=== PATIENT | female | born 1980 | race Caucasian/White ===

== ENCOUNTER 2022-10-25 03:15 | Inpatient (IN) | payer BC ==
[2022-10-25] MEDS ORDERED: Celecoxib 200 MG Cap PO ONE ×2 (05:41→13:37)
[2022-10-25] MEDS ORDERED: Gabapentin 300 MG Cap PO ONE (05:42)
[2022-10-25] MEDS ORDERED: Scopolamine 1.5 MG Transdermal Patch TOP ONE (06:00)
[2022-10-25] MEDS ORDERED: Dextrose 5%-Lactated Ringers 1,000 ML IV SCH ×2 (06:00→10:30)
[2022-10-25 06:08] LABS: HEMOGLOBIN A1C 9.3 % (4.5-6.2)
[2022-10-25 06:26] LABS: MAGNESIUM 1.6 mg/dL (1.8-2.4); PHOSPHORUS 3.4 mg/dL (2.5-4.9)
[2022-10-25] MEDS ORDERED: cefOXitin 2 GM in Sodium Chloride 0.9% 50 ML IV ONE (06:30)
[2022-10-25] MEDS ORDERED: Meropenem 500 MG SDV ONE (06:32)
[2022-10-25] MEDS ORDERED: Bupivacaine 0.5% 50 ML MDV ONE (06:33)
[2022-10-25] MEDS ORDERED: Lidocaine 1% with EPINEPHrine 1:100,000 50 ML MDV ONE (06:33)
[2022-10-25] MEDS ORDERED: cefOXitin 2 GM Vial ONE (06:35)
[2022-10-25] MEDS ORDERED: Propofol 200 MG/20 ML SDV ONE (07:09)
[2022-10-25] MEDS ORDERED: Succinylcholine 200 MG/10 ML MDV ONE (07:09)
[2022-10-25] MEDS ORDERED: Rocuronium 50 MG/5 ML Vial ONE (07:09)
[2022-10-25] MEDS ORDERED: Dexamethasone 4 MG/ML SDV ONE (07:09)
[2022-10-25] MEDS ORDERED: Ondansetron 4 MG/2 ML SDV ONE (07:09)
[2022-10-25] MEDS ORDERED: fentaNYL 250 MCG/5 ML SDV ONE ×2 (07:09→07:43)
[2022-10-25] MEDS ORDERED: Neostigmine Methylsulfate 1 MG/ML 5 ML Syringe ONE (07:09)
[2022-10-25] MEDS ORDERED: Glycopyrrolate 0.2 MG/ML 5 ML MDV ONE (07:09)
[2022-10-25] MEDS ORDERED: Ketamine 19 MG in Sodium Chloride 0.9% 19.81 ML IV SCH (07:30)
[2022-10-25] MEDS ORDERED: Ketamine 500 MG/5 ML MDV IV SCH (07:30)
[2022-10-25] MEDS ORDERED: Labetalol 20 MG/4 ML Syringe ONE (08:00)
[2022-10-25] MEDS ORDERED: Albuterol 90 MCG/6.7 GM Inhaler INH ONE (08:30)
[2022-10-25] MEDS ORDERED: Sugammadex Sodium 200 MG/2 ML VIAL ONE (09:06)
[2022-10-25] MEDS ORDERED: fentaNYL 50 MCG/ML SDV IVPUSH ONE ×2 (09:24→09:48)
[2022-10-25] MEDS ORDERED: hydrOXYzine HCl 50 MG/ML SDV IM ONE (09:36)
[2022-10-25] MEDS: Insulin Lispro 100 Unit/ML 3 ML KwikPen SUBCUT SCH ×3 (09:46→22:53)
[2022-10-25] MEDS ORDERED: 50% Dextrose in Water 50 ML Syringe IVPUSH PRN (10:00)
[2022-10-25] MEDS ORDERED: Glucagon,Human Recombinant 1 MG Vial IM PRN (10:00)
[2022-10-25] MEDS ORDERED: Cyclobenzaprine 10 MG Tab PO PRN (10:27)
[2022-10-25] MEDS: HYDROmorphone 1 MG/ML Syringe IV PRN ×2 (10:36→13:34)
[2022-10-25] MEDS: oxyCODONE 5 MG Tab PO PRN ×2 (10:53→16:37)
[2022-10-25] MEDS ORDERED: Labetalol 20 MG/4 ML Syringe IVPUSH PRN (11:00)
[2022-10-25] MEDS ORDERED: diphenhydrAMINE 50 MG/ML SDV IVPUSH PRN (11:00)
[2022-10-25] MEDS ORDERED: Acetaminophen 500 MG Tab PO PRN (11:00)
[2022-10-25] MEDS: Lactated Ringers 1,000 ML IV SCH ×2 (11:00→22:52)
[2022-10-25] MEDS ORDERED: Ondansetron 4 MG/2 ML SDV IVPUSH PRN (11:00)
[2022-10-25] MEDS ORDERED: Albuterol/Ipratropium 3.0-0.5 MG/3 ML Neb Soln INH PRN (11:00)
[2022-10-25] MEDS: Albuterol/Ipratropium 3.0-0.5 MG/3 ML Neb Soln INH SCH ×3 (11:57→20:58)
[2022-10-25] MEDS: Magnesium Sulfate/Water 2 GM in Premix Bag 1 BAG IV SCH ×2 (12:41→18:17)
[2022-10-25] MEDS: Acetaminophen 500 MG Tab PO SCH ×2 (12:42→19:58)
[2022-10-25] MEDS ORDERED: Pantoprazole 40 MG Vial IVPUSH SCH (14:00)
[2022-10-25] MEDS: cefOXitin 2 GM in Sodium Chloride 0.9% 50 ML IV SCH ×2 (14:00→19:58)
[2022-10-25] MEDS ORDERED: MVI, Adult with Vitamin K 10 ML, Thiamine 200 MG, Zinc/Copper/Manganese/Selenium 1 ML i... IV SCH ×4 (16:00)
[2022-10-25] MEDS: Heparin Sodium 5,000 Units/ML Vial SUBCUT SCH (18:20)
[2022-10-25] MEDS: HYDROmorphone 0.5 MG/0.5 ML Syringe IVPUSH PRN ×2 (18:41→20:50)
[2022-10-25] MEDS: tiZANidine 2 MG Tab PO PRN (20:30)
[2022-10-25] MEDS: Metoclopramide 10 MG/2 ML SDV IVPUSH PRN (20:30)
[2022-10-25] MEDS: Pramipexole 0.5 MG Tab PO SCH (20:51)
[2022-10-25] MEDS: Gabapentin 300 MG Cap PO SCH (20:51)
[2022-10-25] MEDS: Amitriptyline 25 MG Tab PO SCH (20:51)
[2022-10-26] MEDS: Magnesium Sulfate/Water 2 GM in Premix Bag 1 BAG IV SCH ×4 (00:26→18:08)
[2022-10-26] MEDS: oxyCODONE 5 MG Tab PO PRN (00:28)
[2022-10-26] MEDS: cefOXitin 2 GM in Sodium Chloride 0.9% 50 ML IV SCH ×4 (02:55→19:49)
[2022-10-26] MEDS ORDERED: Iopamidol 612 MG/ML 30 ML SDV PO ONE (04:00)
[2022-10-26] MEDS: Lactated Ringers 1,000 ML IV SCH (05:12)
[2022-10-26] MEDS: HYDROmorphone 0.5 MG/0.5 ML Syringe IVPUSH PRN (05:16)
[2022-10-26] MEDS: Insulin Lispro 100 Unit/ML 3 ML KwikPen SUBCUT SCH ×4 (05:23→22:11)
[2022-10-26] MEDS: Acetaminophen 500 MG Tab PO SCH ×3 (05:29→19:50)
[2022-10-26] MEDS: Heparin Sodium 5,000 Units/ML Vial SUBCUT SCH ×2 (05:29→18:08)
[2022-10-26] MEDS ORDERED: hydrOXYzine HCl 25 MG Tab PO PRN (06:43)
[2022-10-26] MEDS ORDERED: Lactated Ringers 1,000 ML IV SCH (06:45)
[2022-10-26] MEDS: Albuterol/Ipratropium 3.0-0.5 MG/3 ML Neb Soln INH SCH ×4 (06:58→20:14)
[2022-10-26] MEDS: Ondansetron 4 MG Tab.DIS PO PRN ×2 (08:22→13:10)
[2022-10-26] MEDS: traMADol 50 MG Tab PO PRN ×2 (08:23→14:22)
[2022-10-26] MEDS: hydrOXYzine HCl 50 MG/ML SDV IM PRN (08:45)
[2022-10-26] MEDS: Celecoxib 200 MG Cap PO SCH ×2 (08:47→20:14)
[2022-10-26] MEDS: Gabapentin 300 MG Cap PO SCH ×2 (08:47→20:13)
[2022-10-26] MEDS: SCOPOLAMINE PATCH CHECK TOP SCH (08:48)
[2022-10-26] MEDS: Metoclopramide 10 MG/2 ML SDV IVPUSH PRN ×2 (09:53→16:01)
[2022-10-26] MEDS: tiZANidine 2 MG Tab PO PRN (12:25)
[2022-10-26] MEDS ORDERED: Pantoprazole 40 MG Vial IVPUSH SCH (14:30)
[2022-10-26] MEDS ORDERED: MVI, Adult with Vitamin K 10 ML, Thiamine 200 MG, Zinc/Copper/Manganese/Selenium 1 ML i... IV SCH ×4 (16:00)
[2022-10-26] MEDS ORDERED: Pantoprazole 40 MG Delayed-Release Granules 1 Packet PO SCH (16:30)
[2022-10-26] MEDS: Amitriptyline 25 MG Tab PO SCH (20:13)
[2022-10-26] MEDS: Pramipexole 0.5 MG Tab PO SCH (20:14)
[2022-10-27] MEDS: Magnesium Sulfate/Water 2 GM in Premix Bag 1 BAG IV SCH ×2 (00:22→05:32)
[2022-10-27] MEDS: Insulin Lispro 100 Unit/ML 3 ML KwikPen SUBCUT SCH (03:59)
[2022-10-27] MEDS: traMADol 50 MG Tab PO PRN (04:11)
[2022-10-27] MEDS: Acetaminophen 500 MG Tab PO SCH (04:11)
[2022-10-27] MEDS: Metoclopramide 10 MG/2 ML SDV IVPUSH PRN (04:15)
[2022-10-27] MEDS: Heparin Sodium 5,000 Units/ML Vial SUBCUT SCH (06:01)
[2022-10-27] MEDS: Albuterol/Ipratropium 3.0-0.5 MG/3 ML Neb Soln INH SCH (07:02)
[2022-10-27] MEDS ORDERED: Magnesium Hydroxide 400 MG/5 ML Susp 30 ML Cup PO PRN (07:34)
[2022-10-27] MEDS: hydrOXYzine HCl 50 MG/ML SDV IM PRN (07:39)
[2022-10-27] MEDS ORDERED: Cyanocobalamin (Vitamin B12) 1,000 MCG/ML SDV IM ONE (09:00)
[2022-10-27] MEDS: Gabapentin 300 MG Cap PO SCH (09:01)
[2022-10-27] MEDS: Celecoxib 200 MG Cap PO SCH (09:01)
[2022-10-27] MEDS: SCOPOLAMINE PATCH CHECK TOP SCH (09:03)
== END 2022-10-27 10:09 | disposition home or self-care (01) | DRG 403 ==
LOC: JP.SDSSCHI 05:27 → JP.ICU 09:15
PROVIDERS: ADMIT Surgery; ATTEND Surgery
PROC: 0D164ZA Bypass Stomach to Jejunum, Percutaneous Endoscopic Approach (ICD-10-PCS; principal; 2022-10-25)
PROC: 0FB24ZX Excision of Left Lobe Liver, Percutaneous Endoscopic Approach, Diagnostic (ICD-10-PCS; 2022-10-25)
PROC: 0DB64ZZ Excision of Stomach, Percutaneous Endoscopic Approach (ICD-10-PCS; 2022-10-25)
PROC: 0BQT4ZZ Repair Diaphragm, Percutaneous Endoscopic Approach (ICD-10-PCS; 2022-10-25)
DX: E66.01 Morbid (severe) obesity due to excess calories (principal); R16.0 Hepatomegaly, not elsewhere classified; E28.2 Polycystic ovarian syndrome; E83.59 Other disorders of calcium metabolism; N29 Other disorders of kidney and ureter in diseases classified elsewhere; E11.9 Type 2 diabetes mellitus without complications; M79.7 Fibromyalgia; K44.9 Diaphragmatic hernia without obstruction or gangrene; I10 Essential (primary) hypertension; F41.9 Anxiety disorder, unspecified; K21.9 Gastro-esophageal reflux disease without esophagitis; G89.4 Chronic pain syndrome; M54.9 Dorsalgia, unspecified; F32.9 Major depressive disorder, single episode, unspecified; Z88.8 Allergy status to other drugs, medicaments and biological substances; Z68.39 Body mass index [BMI] 39.0-39.9, adult
CPT/HCPCS: 36415; 74240; 74240-26; 82947; 83036; 83735; 83880; 84100; 86850; 86900; 86901; 88307; 88313; 93005; 93010; 94640; A9270-GY; C9113; J0171; J0330; J0694; J1100; J1170; J1644; J1815; J1815-GY; J2020; J2185; J2405; J2704; J2710; J2765; J2795; J3010; J3410; J3411; J3420; J3475; J3490; J7120; J7121; J7620; Q0162; Q9967

== ENCOUNTER 2022-11-04 01:10 | Emergency (ER) | payer BC ==
[2022-11-04] MEDS ORDERED: Sodium Chloride 0.9% 10 ML Syringe FLUSH PRN (01:36)
[2022-11-04] MEDS ORDERED: HYDROmorphone 0.5 MG/0.5 ML Syringe IVPUSH ONE ×4 (01:38→08:35)
[2022-11-04] MEDS ORDERED: Lactated Ringers 1,000 ML IV SCH (01:45)
[2022-11-04 01:53] LABS: BASOPHILS ABSOLUTE AUTO 0.04 K/uL (0.00-0.10); BASOPHILS PERCENT AUTO 0.3 % (0.1-1.3); EOSINOPHILS PERCENT AUTO 1.3 % (0.0-5.4); HEMATOCRIT 35.1 % (34.3-46.0); HEMOGLOBIN 10.6 g/dL (11.2-15.5); IMMATURE GRAN ABSOLUTE AUTO 0.07 K/uL (0.00-0.23); IMMATURE GRAN PERCENT AUTO 0.5 % (0.0-0.7); LYMPHOCYTES ABSOLUTE AUTO 2.51 K/uL (0.8-3.3); LYMPHOCYTES PERCENT AUTO 16.7 % (11.4-47.7); MEAN CORPUSCULAR HEMOGLOBIN 24.4 pg (31.6-35.5); MEAN CORPUSCULAR HGB CONC 30.2 g/dL (31.6-35.5); MEAN CORPUSCULAR VOLUME 80.9 fL (81.4-99.0); MONOCYTES ABSOLUTE AUTO 0.88 K/uL (0.20-0.90); MONOCYTES PERCENT AUTO 5.9 % (3.3-12.6); NEUTROPHILS ABSOLUTE AUTO 11.32 K/uL (1.0-7.6); NEUTROPHILS PERCENT AUTO 75.3 % (40.0-78.1); PLATELET COUNT,PLT 396 K/uL (130-375); RED BLOOD CELL COUNT 4.34 M/uL (3.77-5.24)
[2022-11-04 02:18] LABS: A/G RATIO 0.7 (1.2-2.2); ALANINE AMINOTRANSFERASE,ALT 80 U/L (12-78); ALKALINE PHOSPHATASE 201 U/L (46-116); ASPARTATE AMNIOTRANSFERASE,AST 36 U/L (15-37); BILIRUBIN TOTAL 0.4 mg/dL (0.2-1.0); BLOOD UREA NITROGEN,BUN 19 mg/dL (7-18); CALCIUM 8.9 mg/dL (8.5-10.1); CARBON DIOXIDE,CO2 23 mmol/L (21-32); CHLORIDE,CL 101 mmol/L (100-108); CREATININE 0.7 mg/dL (0.6-1.0); EST CRCL DRUG DOSING (CG) 104.53 mL/min; ESTIMATED GFR 110 mL/min (>60); GLUCOSE RANDOM 159 mg/dL (74-106); LIPASE 297 U/L (73-393); POTASSIUM,K 3.9 mmol/L (3.6-5.2); PROTEIN TOTAL,TP 7.3 g/dL (6.4-8.2); SODIUM,NA 134 mmol/L (140-148)
[2022-11-04 02:20] LABS: ANION GAP 13.9 mmol/L (5.0-14.0)
[2022-11-04 02:21] LABS: TROPONIN I HIGH SENSITIVITY 61.6 pg/mL (<=60.3)
[2022-11-04] MEDS ORDERED: Aspirin 81 MG Tab.Chew PO ONE (02:46)
[2022-11-04] MEDS ORDERED: Sodium Chloride 0.9% 50 ML IV STA (06:07)
[2022-11-04] MEDS ORDERED: Iopamidol 612 MG/ML 100 ML Bottle IV STA (06:07)
[2022-11-04] MEDS ORDERED: Iopamidol 612 MG/ML 50 ML SDV ONE (06:10)
[2022-11-04] MEDS ORDERED: Iopamidol 612 MG/ML 50 ML SDV PO ONE (23:36)
== END 2022-11-04 08:50 | disposition home or self-care (01) ==
LOC: JP.ED 01:10
DX: R10.13 Epigastric pain (principal); G89.18 Other acute postprocedural pain; E11.9 Type 2 diabetes mellitus without complications; Z88.8 Allergy status to other drugs, medicaments and biological substances
CPT/HCPCS: 36415; 71045; 74018; 74177; 80053; 83605; 83690; 84484; 85025; 93005; 96361; 96374; 96376; 99284; A9270; J1170; J3490; J7120; Q9967

== ENCOUNTER 2022-12-16 07:03 | Day surgery (SDC) | payer BC ==
[2022-12-16] MEDS ORDERED: Lactated Ringers 1,000 ML IV SCH (07:30)
[2022-12-16] MEDS ORDERED: Midazolam 1 MG/ML 2 ML SDV ONE (07:30)
[2022-12-16] MEDS ORDERED: Propofol 200 MG/20 ML SDV ONE (07:30)
[2022-12-16] MEDS ORDERED: fentaNYL 50 MCG/ML SDV ONE (07:31)
[2022-12-16] MEDS ORDERED: Glycopyrrolate 0.2 MG/ML 2 ML SDV IVPUSH ONE (08:00)
[2022-12-16] MEDS ORDERED: Cyanocobalamin (Vitamin B12) 1,000 MCG/ML SDV IM ONE (08:00)
[2022-12-16] MEDS ORDERED: MVI, Adult with Vitamin K 10 ML, Thiamine 200 MG, Zinc/Copper/Manganese/Selenium 1 ML i... IV ONE ×4 (08:30)
[2022-12-16] MEDS ORDERED: Sodium Chloride 0.9% 500 ML ONE (10:12)
== END 2022-12-16 11:10 | disposition home or self-care (01) ==
LOC: JP.SDS 07:03
PROVIDERS: ATTEND Surgery
DX: K22.2 Esophageal obstruction (principal); F41.9 Anxiety disorder, unspecified
CPT/HCPCS: 43245; 76000; J2250; J2704; J3010; J3411; J3420; J3490; J7040; J7120